=== PATIENT | male | born 1935 | race Caucasian/White ===

== ENCOUNTER → 2017-09-18 | Outpatient (CLI) | payer MEDICARE, OTHER ==
[~2017-09-18] MED LIST: ASPIRIN 325 MG TABLET; DIAZEPAM 10 MG TABLET.; EPINEPHrine 1 MG/ML VIAL; EPTIFIBATIDE BOLUS 2,000 MCG/ML 10ML VIAL. IV; HEPARIN SODIUM 5,000 UNIT/ML VIAL for PCVC.; HEPARIN for ARTERIAL LINE 1,500 ML; HYDROcodone/APAP 5/325MG 1 TAB TABLET; IODIXANOL 270 MG/ML 100 ML VIAL.; IV NORMAL SALINE 1000ML BAG 1,000 ML; IV NORMAL SALINE 500ML BAG 500 ML; LIDOCAINE 1% Multi-Dose 20 ML VIAL.; MIDAZOLAM HCL/PF 2 MG/2 ML VIAL.; VANCOMYCIN 1GM IVPB FOR OMNI 250 ML; fentaNYL PF VIAL 100 MCG/2 ML VIAL; hydrALAZINE 20 MG/ML VIAL.
== END | disposition home or self-care (01) ==
LOC: PCVCINTER 07:17
DX: I70.202 Unspecified atherosclerosis of native arteries of extremities, left leg (principal); I70.242 Atherosclerosis of native arteries of left leg with ulceration of calf (principal); I70.92 Chronic total occlusion of artery of the extremities; L97.929 Non-pressure chronic ulcer of unspecified part of left lower leg with unspecified severity; N18.9 Chronic kidney disease, unspecified; I12.9 Hypertensive chronic kidney disease with stage 1 through stage 4 chronic kidney disease, or unspecified chronic kidney disease
CPT/HCPCS: 36252; 37186; 37227; 75716; 76937; C1713; C1725; C1751; C1757; C1769; C1876; C1885; C1887; C1894; C2628; J0171; J0360; J1327; J1644; J2250; J3010; J3370; J7030; J7040

== ENCOUNTER → 2017-09-29 | Outpatient (CLI) | payer MEDICARE, OTHER ==
[~2017-09-29] MED LIST changes: -ASPIRIN 325 MG TABLET; -EPTIFIBATIDE BOLUS 2,000 MCG/ML 10ML VIAL. IV; -HEPARIN for ARTERIAL LINE 1,500 ML; -HYDROcodone/APAP 5/325MG 1 TAB TABLET; -IV NORMAL SALINE 500ML BAG 500 ML
== END | disposition home or self-care (01) ==
LOC: PCVCINTER 09:34
DX: I70.211 Atherosclerosis of native arteries of extremities with intermittent claudication, right leg (principal); I10 Essential (primary) hypertension; I70.1 Atherosclerosis of renal artery; I25.10 Atherosclerotic heart disease of native coronary artery without angina pectoris
CPT/HCPCS: 37186; 37227; 76937; 99152; 99153; C1725; C1751; C1757; C1760; C1769; C1876; C1885; C1887; C1894; J0171; J0360; J1644; J2250; J3010; J3370; J7030

== ENCOUNTER → 2017-11-17 | Outpatient (CLI) | payer MEDICARE, OTHER | END | disposition home or self-care (01) | LOC: PCVCIMAG 10:57 | DX: I73.9 Peripheral vascular disease, unspecified (principal); I77.9 Disorder of arteries and arterioles, unspecified; E11.22 Type 2 diabetes mellitus with diabetic chronic kidney disease; N18.9 Chronic kidney disease, unspecified; E78.00 Pure hypercholesterolemia, unspecified; I48.91 Unspecified atrial fibrillation; L97.919 Non-pressure chronic ulcer of unspecified part of right lower leg with unspecified severity; L97.929 Non-pressure chronic ulcer of unspecified part of left lower leg with unspecified severity; I65.23 Occlusion and stenosis of bilateral carotid arteries; Z95.5 Presence of coronary angioplasty implant and graft; Z88.0 Allergy status to penicillin; Z79.899 Other long term (current) drug therapy; Z79.4 Long term (current) use of insulin | CPT/HCPCS: 93880; 93925; G0463 ==

== ENCOUNTER → 2018-05-30 | Outpatient (CLI) | payer MEDICARE, OTHER ==
[~2018-05-30] MED LIST changes: +ACETAMINOPHEN 500 MG TABLET PO ONE; +CLOPIDOGREL BISULFATE 75 MG TABLET ONE; -DIAZEPAM 10 MG TABLET.; +DIAZEPAM 10 MG TABLET. ONE; -EPINEPHrine 1 MG/ML VIAL; +EPTIFIBATIDE BOLUS 2,000 MCG/ML 10ML VIAL. IV ONE; -HEPARIN SODIUM 5,000 UNIT/ML VIAL for PCVC.; +HEPARIN for SUB-Q USE 5,000 UNIT/ML VIAL. ONE; -IODIXANOL 270 MG/ML 100 ML VIAL.; +IODIXANOL 270 MG/ML 100 ML VIAL. ONE; -IV NORMAL SALINE 1000ML BAG 1,000 ML; +IV NORMAL SALINE 1000ML BAG 1,000 ML ONE; -LIDOCAINE 1% Multi-Dose 20 ML VIAL.; +LIDOCAINE 1%/EPI 1:100,000 20 ML VIAL. ONE; -MIDAZOLAM HCL/PF 2 MG/2 ML VIAL.; +MIDAZOLAM HCL/PF 2 MG/2 ML VIAL. ONE; -VANCOMYCIN 1GM IVPB FOR OMNI 250 ML; +WATER FOR INJECTION,STERILE 20 ML VIAL. IJ ONE; +ceFAZolin SODIUM 1 GM VIAL ONE; +diphenhydrAMINE 50 MG/ML VIAL ONE; -fentaNYL PF VIAL 100 MCG/2 ML VIAL; +fentaNYL PF VIAL 100 MCG/2 ML VIAL ONE; -hydrALAZINE 20 MG/ML VIAL.; +hydrALAZINE 20 MG/ML VIAL. ONE
--- NOTE | 2018-05-30 23:03 | PCVCINTER ---
EXAM: 1. AORTOGRAM AND BILATERAL LOWER EXTREMITY RUNOFF ANGIOGRAM 2. BILATERAL RENAL ANGIOGRAPHY 3. RIGHT SUPERFICIAL FEMORAL ARTERY ATHERECTOMY AND STENT PLACEMENT. 4. MID RIGHT ANTERIOR TIBIAL ARTERY ATHERECTOMY AND ANGIOPLASTY. 5. PROXIMAL RIGHT ANTERIOR TIBIAL ARTERY ATHERECTOMY AND DRUG-ELUTING STENT PLACEMENT. 6. SECONDARY THROMBECTOMY RIGHT ANTERIOR TIBIAL ARTERY. 7. DRUG COATED BALLOON ANGIOPLASTY RIGHT SUPERFICIAL FEMORAL ARTERY. INDICATION: Peripheral arterial disease. Coronary artery disease. Nonhealing ulcer right lower extremity. Hypertension. Renal atherosclerosis. No prior catheter based angiographic study is available. A full diagnostic angiogram study is performed today and the decision to intervene is based on this diagnostic study. PROCEDURE: Procedure and risks of angiography intervention is appropriate including limb loss stroke and were discussed with the patient's family and consent obtained. The patient's left groin was prepped in the normal sterile fashion. IV conscious sedation was used throughout procedure with appropriate monitoring from 12:00 PM through 1:30 PM. Ultrasound was used to interrogate the left groin and showed the left common femoral artery to be patent. A permanent spot film was obtained. Under ultrasound guidance access into the left common femoral artery was obtained and a 6 Spanish crossover sheath was placed via the left groin to the level of the right common femoral artery. Atherectomy of the right superficial femoral artery was performed with 0.9 mm Spectranetics laser atherectomy catheter in the standard fashion. Atherectomy of the right anterior tibial artery was performed with 0.9 mm Spectranetics laser atherectomy catheter in the standard fashion. Following atherectomy small areas of thrombus were observed and because of this secondary thrombectomy throughout the right anterior tibial artery was carried out with mechanical suction thrombectomy catheter in the standard fashion. Minimal debris was removed. Angioplasty of high-grade stenosis mid right anterior tibial artery was carried out with a 2.5 x 40 sleek [employer]GER catheter. Stent placement across the areas of high-grade stenosis in the right proximal anterior tibial artery was carried out with a 3.5 x 33 Cordis EluNIR stent with subsequent dilatation to 3.5 mm. Following this drug coated balloon angioplasty of the mid right superficial femoral artery was carried out with a 6 x 60 SpectranetYupiCall [place] [employer]ITY MANAGER catheter. Stent placement across the areas of high-grade stenosis in the right superficial femoral artery was carried out with a 6 x 30 Smart control stent with subsequent dilatation to 6.0 mm. Follow-up angiogram was performed. Catheters and wires removed. Sheath was removed and hemostasis obtained using the FISH device. No immediate complications. FINDINGS: Right superficial femoral artery: Following procedure as above vessel shows good patency. Right anterior tibial artery: Following procedure as above vessel shows good patency. IMPRESSION: Areas of stenosis in the mid right superficial femoral artery, mid anterior tibial artery, and proximal right anterior tibial artery were treated as above with good patency restored. LOC:OFFICE
== END | disposition home or self-care (01) ==
LOC: PCVCINTER 08:51
PROVIDERS: ATTEND Nuclear Medicine Nuclear Cardiology
DX: I70.238 Atherosclerosis of native arteries of right leg with ulceration of other part of lower leg (principal); I70.248 Atherosclerosis of native arteries of left leg with ulceration of other part of lower leg; L97.919 Non-pressure chronic ulcer of unspecified part of right lower leg with unspecified severity; L97.929 Non-pressure chronic ulcer of unspecified part of left lower leg with unspecified severity; I70.1 Atherosclerosis of renal artery; I25.10 Atherosclerotic heart disease of native coronary artery without angina pectoris; I12.9 Hypertensive chronic kidney disease with stage 1 through stage 4 chronic kidney disease, or unspecified chronic kidney disease; E11.22 Type 2 diabetes mellitus with diabetic chronic kidney disease; N18.9 Chronic kidney disease, unspecified; Z88.0 Allergy status to penicillin; Z88.1 Allergy status to other antibiotic agents; Z79.899 Other long term (current) drug therapy; E78.00 Pure hypercholesterolemia, unspecified; I48.91 Unspecified atrial fibrillation
CPT/HCPCS: 36252; 37186; 37227; 37231; 75716; 76937; 99152; 99153; C1725; C1751; C1757; C1760; C1769; C1876; C1885; C1894; C2623; J0360; J0690; J1200; J1327; J1644; J2250; J3010; J3490; J7030; Q9966; 37226

== ENCOUNTER → 2018-08-23 | Outpatient (CLI) | payer MEDICARE, OTHER ==
--- NOTE | 2018-08-23 08:41 | PCVCIMAG ---
EXAM: BILATERAL CAROTID DUPLEX INDICATION: Carotid Occlusive Disease. FINDINGS: Doppler Measurements (centimeters per second): RIGHT: Peak CCA-48, Peak ECA-410, Diastolic ICA-0, Peak ICA-0, ICA/CCA Ratio-0. LEFT: Peak CCA-92, Peak ECA-70, Diastolic ICA-47, Peak ICA-172, ICA/CCA Ratio-1.9. RIGHT CAROTID: The carotid bulb has extensive plaque. 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 The common carotid artery shows no significant stenosis. The external carotid artery shows 90% stenosis. LEFT CAROTID: The carotid bulb has minimal plaque. The proximal internal carotid artery shows 50-60% stenosis. The common carotid artery shows no significant stenosis. The external carotid artery shows no significant stenosis. Antegrade flow in both vertebral arteries. 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 Postsurgical changes of left carotid endarterectomy with 50-60% restenosis based on ultrasound criteria. These findings may be artifactually elevated because of the contralateral occlusion. No change since October 2017 study. LOC:[id number]
--- NOTE | 2018-08-23 10:44 | PCVCIMAG ---
EXAM: BILATERAL LOWER EXTREMITY ARTERIAL DUPLEX INDICATION: Peripheral Arterial Disease. Leg pain. FINDINGS: Right Leg: Common femoral and profunda femoral arteries are patent. Superficial femoral artery and popliteal artery showing adequate patency. Previous superficial femoral artery stents maintaining adequate patency. Unchanged occlusion of the peroneal artery and posterior tibial artery. Previous site of intervention proximal anterior tibial artery remains patent. Unchanged 50% stenosis mid [place] anterior tibial artery. Left Leg: Common femoral and profunda femoral arteries are patent. 50% stenosis mid superficial femoral artery. Popliteal artery is patent. Peroneal artery and posterior tibial arteries are occluded. Mild restenosis proximal anterior tibial artery not felt be flow-limiting. IMPRESSION: Previous right superficial femoral artery stents maintaining adequate patency. Previous site of intervention anterior tibial artery approximately remains patent. Unchanged occlusion of the right peroneal and right posterior tibial arteries. 50% stenosis mid left superficial femoral artery not felt be flow-limiting. Unchanged occlusion right peroneal and right posterior tibial arteries. Mild stenosis proximal right anterior tibial artery. LOC:[place] [id number]
== END | disposition home or self-care (01) ==
LOC: PCVCIMAG 08:13
PROVIDERS: ATTEND Nuclear Medicine Nuclear Cardiology
DX: E11.51 Type 2 diabetes mellitus with diabetic peripheral angiopathy without gangrene (principal); I65.23 Occlusion and stenosis of bilateral carotid arteries; E78.00 Pure hypercholesterolemia, unspecified; I48.91 Unspecified atrial fibrillation; I12.9 Hypertensive chronic kidney disease with stage 1 through stage 4 chronic kidney disease, or unspecified chronic kidney disease; E11.22 Type 2 diabetes mellitus with diabetic chronic kidney disease; N18.9 Chronic kidney disease, unspecified; Z79.899 Other long term (current) drug therapy
CPT/HCPCS: 93880; 93925; G0463